=== PATIENT | female | born 1990 | race Caucasian/White ===

== ENCOUNTER 2016-07-28 10:50 | Emergency (ER) | payer SELFPAY ==
[2016-07-28 11:45] LABS: Basophils % (Auto) 0.3 % (0.0-1.8); Eosinophils % (Auto) 0.4 % (0.0-4.3); Hematocrit 35.9 % (30.3-42.9); Hemoglobin 12.3 gm/dl (10.1-14.3); Mean Corpuscular HGB Conc 34 % (30-34); Mean Corpuscular Hemoglobin 33 pg (28-32); Mean Corpuscular Volume 95 fl (79-97); Platelet Count 308 K/mm3 (140-440); Red Blood Count 3.79 M/mm3 (3.65-5.03); Red Cell Distribution Width 12.9 % (13.2-15.2); White Blood Count 9.6 K/mm3 (4.5-11.0)
[2016-07-28 11:58] LABS: Alanine Aminotransferase 8 units/L (7-56); Albumin 4.1 g/dL (3.9-5); Albumin/Globulin Ratio 1.1 %; Alkaline Phosphatase 37 units/L (35-129); Anion Gap 22 mmol/L; BUN/Creatinine Ratio 11.66; Bilirubin,Total 0.5 mg/dL (0.1-1.2); Blood Urea Nitrogen 7 mg/dL (7-17); Calcium 9.6 mg/dL (8.4-10.2); Carbon Dioxide 19 mmol/L (22-30); Chloride 100.9 mmol/L (98-107); Glucose 76 mg/dL (65-100); Lipase 30 units/L (13-60); Sodium 137 mmol/L (137-145)
--- NOTE | 2016-07-28 12:35 | Emergency Department Report ---
Entered by YOVANNY FU, acting as scribe for DARIUSZ BANGURA PA. Stated Complaint: LOWER ABD PAIN Time Seen by Provider: 07/28/16 11:15 - HPI History of Present Illness: Patient presents to the ED c/o lower abdominal pain that began 1 week ago. Reports minimal dysuria, vomiting (1 episode), and urgency. Denies vaginal bleeding and frequency. LMP 06/13/2016. - ROS Review of Systems: All system are negative unless stated in HPI above. - Exam Vital Signs: Vital Signs 07/28/16 11:30 Temperature 98.3 F Pulse Rate 129 H Respiratory 18 Rate Blood Pressure 96/63 O2 Sat by Pulse 100 Oximetry Physical Exam: General: well nourished, well developed, nontoxic in appearance, in no acute distress Abdomen: TTP on pelvic area. Normal BS MSE screening note: Focused history and physical exam performed. Due to findings the following was ordered: ED Medical Decision Making - Lab Data Result diagrams: 07/28/16 11:26 07/28/16 11:26 - Medical Decision Making Medical decision making: Patient seen by provider in triage area. Appropriate protocol activated and patient to main ED to be seen by provider ED Disposition for MSE Condition: Stable This documentation as recorded by the scribe,YOVANNY FU,accurately reflects the service I personally performed and the decisions made by me,DARIUSZ BANGURA PA.
[2016-07-28 12:43] LABS: Bacteria,Urine 1+ /HPF (Negative); Bilirubin,Urine NEG (Negative); Blood,Urine NEG (Negative); Ketones,Urine 80 mg/dL (Negative); Leukocyte Esterase,Urine MOD (Negative); Mucus,Urine FEW /HPF; Nitrite,Urine POS (Negative); Urobilinogen,Urine < 2.0 mg/dL (<2.0)
--- NOTE | 2016-07-28 14:03 | Ultrasound Report ---
ULTRASOUND OB LESS THAN 14 WEEKS - TRANSABDOMINAL AND TRANSVAGINAL INDICATION: with pelvic pain. COMPARISON: None similar at this institution. FINDINGS: Transabdominal and transvaginal pelvic sonography performed in this patient with LMP of 06/13/2016 and estimated menstrual age of 6 weeks and 3 days. It demonstrates an anteverted, gravid uterus estimated at 7.6 x 4.9 x 5.9 cm with a single, viable intrauterine gestation with heart rate of 118 beats per minute. Approximately 4 mm yolk sac. Mean crown-rump length of 0.66 cm corresponds to 6 weeks and 4 days. Approximately 2 x 0.4 x 1.8 cm subchorionic hemorrhage may be noted as on endovaginal image 6. Small pelvic free fluid. Normal right ovary measuring 2.9 x 1.1 x 2.9 cm. Left ovary measures 3.5 x 2.6 x 3 cm with a 1.9 cm somewhat thick walled possible corpus luteal cyst. CONCLUSION: 1. Single, live intrauterine gestation with an ultrasound estimated age of 6 weeks and 4 days and ADRIEN of 03/19/2017. 2. Other findings, as above. Thank you for the opportunity to participate in this patient's care.
[2016-07-28 14:12] VITALS: BP 108/71
--- NOTE | 2016-07-28 14:31 | Emergency Department Report ---
ED Abdominal Pain HPI - General Chief Complaint: Abdominal Pain Stated Complaint: LOWER ABD PAIN Time Seen by Provider: 07/28/16 11:19 Source: patient Mode of arrival: Ambulatory Limitations: No Limitations - History of Present Illness Initial Comments: 26-year-old female presents to the emergency department complaining of lower abdominal cramping. Patient states she has been having intermittent cramps for one week. She denies vaginal bleeding. She does report mild, clear vaginal discharge. Patient states she has been having some nausea, but denies vomiting or diarrhea. There are no other complaints. MD Complaint: abdominal pain -: Gradual, week(s) (1) Location: suprapubic Radiation: none Migration to: no migration Severity: mild Severity scale (0 -10): 0 Quality: cramping Consistency: intermittent Improves With: nothing Worsens With: nothing Associated Symptoms: nausea - Related Data LMP (females 10-50): 2 months Previous Rx's Medication Instructions Recorded Last Taken Type Nitrofurantoin [place]/M-Cryst 100 mg PO Q12HR #14 capsule 07/28/16 Unknown Rx [Macrobid CAP] Allergies Allergy/AdvReac Type Severity Reaction Status Date / Time No Known Allergies Allergy Unverified 07/28/16 11:33 ED Review of Systems ROS: Stated complaint: LOWER ABD PAIN Other details as noted in HPI Comment: All other systems reviewed and negative Gastrointestinal: abdominal pain, nausea Genitourinary: discharge ED Past Medical Hx - Past Medical History Previous Medical History?: Yes Additional medical history: ovarian cyst - Surgical History Past Surgical History?: Yes Additional Surgical History: Right ACL repair - Family History Family history: no significant - Social History Smoking Status: Former Smoker Substance Use Type: None - Medications Home Medications: Home Medications Medication Instructions Recorded Confirmed Last Taken Type Nitrofurantoin [place]/M-Cryst 100 mg PO Q12HR #14 capsule 07/28/16 Unknown Rx [Macrobid CAP] ED Physical Exam - General Limitations: No Limitations General appearance: alert, in no apparent distress - Head Head exam: Present: atraumatic, normocephalic - Eye Eye exam: Present: normal appearance, PERRL, EOMI - ENT ENT exam: Present: normal exam, normal orophraynx, mucous membranes moist - Neck Neck exam: Present: normal inspection, full ROM. Absent: tenderness - Respiratory Respiratory exam: Present: normal lung sounds bilaterally. Absent: respiratory distress - Cardiovascular Cardiovascular Exam: Present: regular rate, normal rhythm, normal heart sounds - GI/Abdominal GI/Abdominal exam: Present: tenderness (mild suprapubic tenderness to palpation) , normal bowel sounds. Absent: soft, distended, guarding, rebound - Extremities Exam Extremities exam: Present: normal inspection, full ROM. Absent: tenderness - Back Exam Back exam: Present: normal inspection, full ROM. Absent: tenderness - Neurological Exam Neurological exam: Present: alert, oriented X3. Absent: motor sensory deficit - Skin Skin exam: Present: warm, dry, intact ED Course Vital Signs 07/28/16 07/28/16 11:30 14:11 Temperature 98.3 F Pulse Rate 129 H 61 Respiratory 18 14 Rate Blood Pressure 96/63 Blood Pressure 108/71 [Left] O2 Sat by Pulse 100 100 Oximetry ED Medical Decision Making - Lab Data Result diagrams: 07/28/16 11:26 07/28/16 11:26 - Radiology Data Radiology results: report reviewed Pelvic and transvaginal ultrasound reveals a single, live intrauterine with estimated gestational age of 6 weeks 4 days. There is also a small subchorionic hemorrhage. - Medical Decision Making Lab and imaging results reviewed and discussed with the patient. Patient reports her cramping is much improved at this time. Patient will be discharged home to follow up with [facility]. - Differential Diagnosis abdominal pain, ovarian cyst, UTI, ectopic Critical care attestation.: If time is entered above; I have spent that time in minutes in the direct care of this critically ill patient, excluding procedure time. ED Disposition Clinical Impression: Abdominal pain affecting , UTI (urinary tract infection) during Disposition: DISCHARGED TO HOME OR SELFCARE Is pt being admited?: No Condition: Stable Instructions: Abdominal Pain in (ED) Prescriptions: Nitrofurantoin Bonner/M-Cryst [Macrobid CAP] 100 mg PO Q12HR #14 capsule Referrals: ANTHONY PAK MD [Staff Physician] - 3-5 Days Time of Disposition: 14:31
== END 2016-07-28 14:55 | disposition home or self-care (01) ==
LOC: ED 10:50
DX: O23.41 Unspecified infection of urinary tract in pregnancy, first trimester (principal); O99.331 Smoking (tobacco) complicating pregnancy, first trimester; Z3A.01 Less than 8 weeks gestation of pregnancy
CPT/HCPCS: 36415; 76801; 76817; 80053; 81001; 83690; 84703; 85025; 86900; 86901

== ENCOUNTER 2016-08-03 01:10 | Emergency (ER) | payer OTHER ==
[2016-08-03 01:52] VITALS: BP 106/70
[2016-08-03 02:16] LABS: Basophils % (Auto) 0.3 % (0.0-1.8); Eosinophils % (Auto) 1.4 % (0.0-4.3); Hematocrit 34.5 % (30.3-42.9); Hemoglobin 11.9 gm/dl (10.1-14.3); Mean Corpuscular HGB Conc 35 % (30-34); Mean Corpuscular Hemoglobin 32 pg (28-32); Mean Corpuscular Volume 94 fl (79-97); Platelet Count 298 K/mm3 (140-440); Red Blood Count 3.67 M/mm3 (3.65-5.03); Red Cell Distribution Width 12.8 % (13.2-15.2); White Blood Count 9.4 K/mm3 (4.5-11.0)
[2016-08-03 02:25] LABS: Alanine Aminotransferase 8 units/L (7-56); Albumin 3.8 g/dL (3.9-5); Albumin/Globulin Ratio 1.2 %; Alkaline Phosphatase 41 units/L (35-129); Anion Gap 15 mmol/L; Bilirubin,Total < 0.20 mg/dL (0.1-1.2); Blood Urea Nitrogen 5 mg/dL (7-17); Carbon Dioxide 23 mmol/L (22-30); Chloride 101.9 mmol/L (98-107); Glucose 88 mg/dL (65-100); Lipase 66 units/L (13-60); Potassium 4.3 mmol/L (3.6-5.0); Sodium 136 mmol/L (137-145); Total Protein 7.1 g/dL (6.3-8.2)
[2016-08-03 05:22] LABS: Bilirubin,Urine NEG (Negative); Blood,Urine MOD (Negative); Ketones,Urine TR mg/dL (Negative); Leukocyte Esterase,Urine MOD (Negative); Mucus,Urine FEW /HPF; Nitrite,Urine NEG (Negative); Protein,Urine <15 mg/dL mg/dL (Negative); Urobilinogen,Urine < 2.0 mg/dL (<2.0)
== END 2016-08-03 01:55 | disposition left against medical advice (07) ==
LOC: ED 01:10
DX: R10.9 Unspecified abdominal pain (principal); Z53.21 Procedure and treatment not carried out due to patient leaving prior to being seen by health care provider
CPT/HCPCS: 36415; 80053; 81001; 83690; 84702; 85025

== ENCOUNTER 2016-08-03 11:26 | Emergency (ER) | payer OTHER ==
[2016-08-03 11:40] VITALS: BP 108/63
--- NOTE | 2016-08-03 12:51 | Ultrasound Report ---
TRANSABDOMINAL AND TRANSVAGINAL OBSTETRICAL ULTRASOUND:08/03/16 11:26:00 CLINICAL: Vaginal bleeding. Followup subchorionic bleed. COMPARISON: 07/28/16 FINDINGS: Transabdominal and transvaginal ultrasound demonstrated a single intrauterine gestational sac and living fetus. [place]-rump length measured 12.0 corresponding to a gestational age = 7 weeks, 3 days. heart rate = number 154 beats/min. Normal yolk sac. Closed cervix. The previously described subchorionic collection measures 1.2 x 0.4 x 0.5 cm compared to 2.0 x 0.4 x 1.8 cm on the last exam. No new hemorrhage. No adnexal mass or free fluid. A thick wall 2.5 cm left corpus luteum cyst. Normal right ovary. The right ovary measured 4.5 x 1.4 x 3.2cm. The left ovary measured 2.8 x 2.2 x 2.7cm. IMPRESSION: Single living intrauterine fetus at 7 weeks, 3 days based on crown-rump length measurement. Appropriate growth since the prior exam. A slightly smaller subchorionic hemorrhage. Left corpus luteum cyst. EDC based on ultrasound is 03/19/17. EDC based on LMP is 03/20/17.
[2016-08-03] MEDS ORDERED: TYLENOL PO ONE (13:33)
--- NOTE | 2016-08-03 21:22 | Emergency Department Report ---
Entered by VALERI SMITH, acting as scribe for HEMALATHA CHAPMAN NP. ED Female HPI - General Chief complaint: Urogenital-Female Stated complaint: 7 WKS /BLEEDING /ABD PAIN Time Seen by Provider: 08/03/16 13:25 Source: patient, family, RN notes reviewed, old records reviewed Mode of arrival: Ambulatory Limitations: No Limitations - History of Present Illness Initial comments: 26 year old A0 presents to the ED for evaluation of left lower quadrant pain and associated vaginal bleeding that began yesterday. Patient reports bleeding resolved this morning prior to arrival but pain has persisted. She describes pain as intermittent cramping that is similar to previous episode of ovarian cysts and reports taking 1 advil tablet yesterday with no relief. Patient states she did not have sexual intercourse prior to pain onset yesterday. She also notes small amount of vaginal discharge but denies dysuria. LNMP 06/13/2016; she reports 1 previous US during this confirming IUP but is waiting to follow up with an [employer] until she moves home to [place]. PT states she took Motrin for the pain - pt advised not to take NSAIDs at this time. MD Complaint: vaginal bleeding, other (left lower quadrant pain) Onset/Timin -: days(s) Radiation: LLQ Severity: moderate Severity scale (0 -10): 8 Quality: cramping Consistency: intermittent Improves with: none Worsens with: none Are you Now?: Yes (previous US confirming IUP) Last Menstrual Period: 06/13/16 EDC: 03/20/17 Associated Symptoms: vaginal discharge, vaginal bleeding, abdominal pain. denies: dysuria - Related Data Sexually active: Yes : 1 Para: 0 A: 0 Previous Rx's Medication Instructions Recorded Last Taken Type Nitrofurantoin [place]/M-Cryst 100 mg PO Q12HR #14 capsule 07/28/16 Unknown Rx [Macrobid CAP] Allergies Allergy/AdvReac Type Severity Reaction Status Date / Time No Known Allergies Allergy Unverified 07/28/16 11:33 ED Review of Systems Comment: All other systems reviewed and negative Gastrointestinal: abdominal pain (cramping pain in left lower quadrant) Genitourinary: discharge (small amount), other (, vaginal bleeding ). denies: dysuria ED Past Medical Hx - Past Medical History Previous Medical History?: No Additional medical history: ovarian cyst - Surgical History Additional Surgical History: Right ACL repair - Social History Smoking Status: Never Smoker Substance Use Type: None - Medications Home Medications: Home Medications Medication Instructions Recorded Confirmed Last Taken Type Nitrofurantoin [place]/M-Cryst 100 mg PO Q12HR #14 capsule 07/28/16 Unknown Rx [Macrobid CAP] ED Physical Exam - General Limitations: No Limitations General appearance: alert, in no apparent distress - Head Head exam: Present: atraumatic, normocephalic - Eye Eye exam: Present: normal appearance, EOMI - Neck Neck exam: Present: normal inspection, full ROM - Respiratory Respiratory exam: Present: normal lung sounds bilaterally. Absent: respiratory distress, wheezes, rales, rhonchi - Cardiovascular Cardiovascular Exam: Present: regular rate, normal rhythm, normal heart sounds. Absent: systolic murmur, diastolic murmur, rubs, gallop - GI/Abdominal GI/Abdominal exam: Present: soft, tenderness (tenderness to palpation of left lower quadrant), normal bowel sounds. Absent: distended - Extremities Exam Extremities exam: Present: normal inspection, tenderness - Back Exam Back exam: Present: normal inspection, full ROM. Absent: tenderness, CVA tenderness (R), CVA tenderness (L) - Neurological Exam Neurological exam: Present: alert, oriented X3 - Psychiatric Psychiatric exam: Present: normal affect, normal mood - Skin Skin exam: Present: warm, dry, intact ED Course Vital Signs 08/03/16 08/03/16 11:36 13:49 Temperature 99 F Pulse Rate 82 Respiratory 18 18 Rate Blood Pressure 108/63 O2 Sat by Pulse 100 Oximetry - Reevaluation(s) Reevaluation #1: 08/03/16 14:33 PT aware of lab and US results. PT has no questions at this time. PT states Tylenol helped ease her pain - Pulse Oximetry Interpretation Digit-Finger Initial Pulse Oximetry Readin Actions Taken: none ED Medical Decision Making - Radiology Data Radiology results: report reviewed US- pelvic, single live IUP, hr 153. decrease in subchorionic hemorrhage - Medical Decision Making PT is 7 weeks 3 days , with resolved vaginal bleeding. Per record in [facility], pt is B+. PT given verbal instructions on safe OTC medication in . PT verbalizes understanding that she will need to remain on pelvic rest x 1 week and follow up with [facility] when she returns home to [place]. - Differential Diagnosis threatened ab, ovarian cyst Critical Care Time: No ED Disposition Clinical Impression: Abdominal pain affecting Disposition: DISCHARGED TO HOME OR SELFCARE Is pt being admited?: No Does the pt Need Aspirin: No Condition: Stable Instructions: Threatened Miscarriage (ED) Additional Instructions: Pelvic rest x 1 week Follow up with [facility] [employer] when you get home Return to ED if worsening or concerns Continue your macrobid OTC Tylenol for pain OTC vitamin Referrals: PRIMARY CARE, [Primary Care Provider] - 3-5 Days Time of Disposition: 14:39 This documentation as recorded by the LUIS suarez REBEKAH,accurately reflects the service I personally performed and the decisions made by me,HEMALATHA CHAPMAN , [employer]P.
== END 2016-08-03 14:50 | disposition home or self-care (01) ==
LOC: ED 11:26
DX: O26.891 Other specified pregnancy related conditions, first trimester (principal); R10.32 Left lower quadrant pain; N83.209 Unspecified ovarian cyst, unspecified side
CPT/HCPCS: 36415; 76801; 76817; 84702; 87086